=== PATIENT | female | born 1995 | race Caucasian/White ===

== ENCOUNTER 2020-09-09 22:07 | Observation (INO) | payer OTHER ==
[~2020-09-09 22:07] MED LIST: AUGMENTIN 875-1 EACH PO; CEFUROXIME500 MG PO; COLACE 100MG C100 MG PO; FIORICET TAB1 EA PO; FLAGYL500 MG PO; FLONASE 0.05% N16 GM; IBUPROFEN600 MG PO; LEVAQUIN500 MG PO; MACROBID 100 M100 MG PO; NORCO 5-325 TA1 EACH PO; ONDANSETRON ODT8 MG PO; PRENATAL 19 TA1 EAC1 PO; PRENATAL VITAM1 EAC5 PO; TYLENOL325 M1 PO; ZOLOFT50 MG PO
[2020-09-09 23:00] LABS: HEMOGLOBIN 11.4 gm/dl (12.3-15.3); RED BLOOD COUNT 3.71 M/UL (4.00-5.10); WHITE BLOOD COUNT 13.2 K/UL (4.5-11.0)
== END 2020-09-10 12:44 | disposition home or self-care (01) ==
LOC: GENOP 22:07 → OB 22:44
PROVIDERS: ADMIT Obstetrics & Gynecology
DX: O46.93 Antepartum hemorrhage, unspecified, third trimester (principal); O99.333 Smoking (tobacco) complicating pregnancy, third trimester; F17.210 Nicotine dependence, cigarettes, uncomplicated; O99.353 Diseases of the nervous system complicating pregnancy, third trimester; G43.909 Migraine, unspecified, not intractable, without status migrainosus; O99.343 Other mental disorders complicating pregnancy, third trimester; F32.9 Major depressive disorder, single episode, unspecified; Z87.440 Personal history of urinary (tract) infections; Z88.5 Allergy status to narcotic agent; Z88.8 Allergy status to other drugs, medicaments and biological substances; Z79.1 Long term (current) use of non-steroidal anti-inflammatories (NSAID); Z3A.28 28 weeks gestation of pregnancy
CPT/HCPCS: 36415; 59025; 85025; 96360; 96361; 96372; G0378; J0702; J7120